=== PATIENT | female | born 1980 | race Caucasian/White ===

== ENCOUNTER 2017-01-30 04:59 | Emergency (ER) | payer SELFPAY ==
--- NOTE | 2017-01-30 06:34 | DIAGNOSTIC IMAGING REPORT ---
PROCEDURE: CT LOWER EXT W/O CONT-RIGHT INDICATION: TRAUMA/INJURY TECHNIQUE: Axial scans with coronal and sagittal re-formations. COMPARISON: Right foot x-ray 01/30/2017. FINDINGS: There is a comminuted fracture of the calcaneus with minor displacement. The main fracture line is oblique from superior posterior to inferior anterior with some distraction of the fragments. Normal subtalar and ankle joints. No additional fractures. There is soft tissue swelling which is more prominent laterally. IMPRESSION: 1. Comminuted right calcaneus fracture 2. Results discussed with Dr. Moon
--- NOTE | 2017-01-30 06:48 | DIAGNOSTIC IMAGING REPORT ---
PROCEDURE: XR FOOT 3 VIEWS - RIGHT INDICATION: TRAUMA/INJURY TECHNIQUE: Three views. COMPARISON: None. FINDINGS: Nondisplaced fracture of the calcaneus. No additional fractures. Normal joint spaces and soft tissues. IMPRESSION: 1. Nondisplaced calcaneal fracture.
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
--- NOTE | 2017-01-30 07:38 | ED ORDER SUMMARY ---
..... Patient: BATOOL MOORE OrderSheet [facility] VisitID: [id number] [place] [address] 36y, F Registration Date/Time: 01/30/2017 ORDER SHEET Weight: 68.0 kg (stated) Allergies: Imitrex GENERAL ORDERS: Foot 3V Right Urgent (05:12 01/30/2017 HSoule per protocol) (5:15 CBradburn R.N.) CT Lower Extremity Without Contrast - Right Urgent (05:36 01/30/2017 Stephen HI) (5:50 RFay) Splint (LE) (Right) (Short Leg Posterior) (Fiberglass) (06:55 01/30/2017 HSoule verbal order read back to Stephen HI) (7:11 MWinterer R.N.) Crutches (07:10 01/30/2017 Stephen HI) (7:11 MWinterer R.N.) MEDICATION ORDERS: Oxycodone-APAP PO 5/325 mg (NOW) (05:36 01/30/2017 Stephen HI) (Ack 5:50 HSoule) (5:58 HSoule) IV FLUIDS: ORDER SHEET NOTES: [Electronically signed by Maricarmen Hunt R.N. (09:23 01/30/2017)] [Electronically signed by Alan Moon MD (08:53 01/31/2017)] [Electronically locked/signed by Maricarmen Hunt R.N. (09:23 01/30/2017)]
--- NOTE | 2017-01-30 07:38 | ED ORDER SUMMARY ---
..... Patient: BATOOL MOORE OrderSheet [facility] VisitID: [id number] [place] [address] 36y, F Registration Date/Time: 01/30/2017 ORDER SHEET Weight: 68.0 kg (stated) Allergies: Imitrex GENERAL ORDERS: Foot 3V Right Urgent (05:12 01/30/2017 HSoule per protocol) (5:15 CBradburn R.N.) CT Lower Extremity Without Contrast - Right Urgent (05:36 01/30/2017 Stephen HI) (5:50 RFay) Splint (LE) (Right) (Short Leg Posterior) (Fiberglass) (06:55 01/30/2017 HSoule verbal order read back to Stephen HI) (7:11 MWinterer R.N.) Crutches (07:10 01/30/2017 Stephen [place]) (7:11 MWinterer R.N.) MEDICATION ORDERS: Oxycodone-APAP PO 5/325 mg (NOW) (05:36 01/30/2017 Stephen [place]) (Ack 5:50 HSoule) (5:58 HSoule) IV FLUIDS: ORDER SHEET NOTES: [Electronically signed by Maricarmen Hunt R.N. (09:23 01/30/2017)] [Electronically signed by Alan Moon MD (08:53 01/31/2017)] [Electronically locked/signed by Maricarmen Hunt R.N. (09:23 01/30/2017)]
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
--- NOTE | 2017-01-31 08:53 | ED MED RECONCILIATION SUMMARY ---
Patient: BATOOL MOORE Medication Reconciliation Report [facility] VisitID: [id number] [address] [place] [address] 36y, F Registration Date/Time: 01/30/2017 Weight: 68.0 kg Height/Length: 67 in. BMI: 23.5 ALLERGIES: Imitrex The patient's Home Medications are listed below: NONE. The source(s) of the original Home Medication information: Not obtained. The following Medications were given to the patient in the Emergency Department: Oxycodone-APAP [PO] PO 1 tab, administered: 01/30/2017 5:48:00 AM The following Medications were prescribed to the patient: Oxycodone/APAP 5 mg/325 mg: take 1-2 tablets orally every 6 hours as needed for pain. Dispense twenty-five (25). No refill. -- Alan Moon MD
--- NOTE | 2017-01-31 08:53 | ED MED RECONCILIATION SUMMARY ---
Patient: BATOOL MOORE Medication Reconciliation Report [facility] VisitID: [id number] [address] [place] [address] 36y, F Registration Date/Time: 01/30/2017 Weight: 68.0 kg Height/Length: 67 in. BMI: 23.5 ALLERGIES: Imitrex The patient's Home Medications are listed below: NONE. The source(s) of the original Home Medication information: Not obtained. The following Medications were given to the patient in the Emergency Department: Oxycodone-APAP [PO] PO 1 tab, administered: 01/30/2017 5:48:00 AM The following Medications were prescribed to the patient: Oxycodone/APAP 5 mg/325 mg: take 1-2 tablets orally every 6 hours as needed for pain. Dispense twenty-five (25). No refill. -- Alan Moon MD
--- NOTE | 2017-01-31 08:53 | ED MAR SUMMARY ---
..... Medication Administration Record [address] [place] [address] Patient: BATOOL MOORE Visit ID: [id number] 36y, F Weight: 68.0 kg Height/Length: 67 in BMI: 23.5 ALLERGIES: Imitrex Given 05:48 01/30/2017 Candice Rodríguez, Medication Administered: OXYCODONE-APAP [PO] (OXYCODONE-ACETAMINOPHEN), Dose: 1 tab 5/325 mg Tablets PO. Medication Ordered: Oxycodone-APAP PO 5/325 mg (NOW).
--- NOTE | 2017-01-31 08:53 | ED MAR SUMMARY ---
..... Medication Administration Record [address] [place] [address] Patient: BATOOL MOORE Visit ID: [id number] 36y, F Weight: 68.0 kg Height/Length: 67 in BMI: 23.5 ALLERGIES: Imitrex Given 05:48 01/30/2017 Candice Rodríguez, Medication Administered: OXYCODONE-APAP [PO] (OXYCODONE-ACETAMINOPHEN), Dose: 1 tab 5/325 mg Tablets PO. Medication Ordered: Oxycodone-APAP PO 5/325 mg (NOW).
--- NOTE | 2017-01-31 08:53 | ED DISCHARGE INSTRUCTIONS ---
Patient: BATOOL MOORE General Instructions [facility] VisitID: [id number] [place] [address] 36y, F Registration Date/Time: 01/30/2017 Closed nondisplaced transverse, comminuted fracture of the body of the right calcaneus. Fall from colliding. INSTRUCTIONS Apply ice for 15-20 minutes three times a day for one days. Use crutches until released. Wear fiberglass splint until released. Elevate affected areas above chest level today. No weight bearing. Warnings: SEDATIVE MEDICATION: You were given sedative medication during your visit. Do not drive or operate dangerous machinery. GENERAL WARNINGS: Return or contact your physician immediately if your condition worsens or changes unexpectedly, if not improving as expected, or if other problems arise. Prescription Medications: Oxycodone/APAP 5 mg/325 mg: take 1-2 tablets orally every 6 hours as needed for pain. Dispense twenty-five (25). No refill. Understanding of the discharge instructions verbalized by patient. Follow-up with: Rickey Tolentino DPM, Podiatry, , [address], [place], [address] Follow up in three days. Call for an appointment. ADDITIONAL INFORMATION Mechanical Fall You have had a fall today. It appears that the cause is mechanical. That means that you slipped, tripped or lost your balance. If your fall had been due to fainting or a seizure, further tests would be required. Home Care: Rest today and resume your normal activities when you are feeling back to normal. If you were injured during the fall, follow the advice from your doctor regarding care of your injury. You may use acetaminophen (Tylenol) or ibuprofen (Motrin, Advil) to control pain, unless another pain medicine was prescribed. [NOTE: If you have chronic liver or kidney disease or ever had a stomach ulcer or GI bleeding, talk with your doctor before using these medicines.] Fall Prevention: Was there anything that caused your fall that can be fixed, removed, or replaced? Make your home safe by keeping walkways clear of objects you may trip over. Use non-slip pads under rugs. Do not walk in poorly lit areas. Do not stand on chairs or wobbly ladders. Use caution when reaching overhead or looking upward. This position can cause a loss of balance. Be sure your shoes fit properly, have non-slip bottoms and are in good condition. Be cautious when going up and down curbs, and walking on uneven sidewalks. If your balance is poor, consider using a cane or walker. Stay as active as you can. Balance, flexibility, strength, and endurance all come from exercise. They all play a role in preventing falls. Follow Up with your doctor or as advised by our staff. Get Prompt Medical Attention if any of the following occur: Repeated mechanical falls, or unexplained falls Dizziness, fainting or seizure Severe headache Chest pain or shortness of breath Palpitations (very rapid or very slow or irregular heartbeat) Blood in vomit, stools (black or red color) Weakness of an arm or leg or one side of the face Difficulty with speech or vision Fracture:Foot You have a fracture (break) of one of the bones in your foot. This will cause pain, swelling and sometimes bruising. It will take about 4-6 weeks to heal. A foot fracture may be treated with a special shoe, splint, cast or boot. Home Care: You may be given a splint, cast, shoe or boot to prevent movement at the injury. Unless you were told otherwise, use crutches or a walker and do not bear weight on the injured foot until cleared by your doctor to do so. (Crutches and walkers can be rented at many pharmacies and surgical/orthopedic supply stores). Do not put weight on a splint; it will break. Keep your leg elevated to reduce pain and swelling. When sleeping, place a pillow under the injured leg. When sitting, support the injured leg so it is level with your waist. This is very important during the first 48 hours. Apply an ice pack (ice cubes in a plastic bag, wrapped in a towel) over the injured area for 20 minutes every 1-2 hours the first day. You can place the ice pack directly over the splint/cast. Unless told otherwise, you can open the boot or shoe to apply ice. Continue with ice packs 3-4 times a day for the next two days, then as needed for the relief of pain and swelling. Keep the splint/cast/boot/shoe dry. When bathing, protect it with a large plastic bag, rubber-banded at the top end. If a fiberglass splint/cast or boot gets wet, you can dry it with a hair-dryer. Unless told otherwise, you can remove a boot or shoe to bathe. You may use acetaminophen (Tylenol) or ibuprofen (Motrin, Advil) to control pain, unless another pain medicine was prescribed. [NOTE: If you have chronic liver or kidney disease or ever had a stomach ulcer or GI bleeding, talk with your doctor before using these medicines.] Follow Up with your doctor within one week, or as advised by our staff, to be sure the bone is healing properly. If you were given a splint, it may be changed to a cast or boot at your follow-up visit.[NOTE: A radiologist will review any X-rays that were taken. We will notify you of any new findings that may affect your care.] Get Prompt Medical Attention if any of the following occur: The plaster cast or splint becomes wet or soft The fiberglass cast or splint remains wet for more than 24 hours Increased tightness or pain under the cast or splint Toes become swollen, cold, blue, numb or tingly Crutch Walking Crutch Adjustment Make sure the crutches you use are adjusted to fit you. When you stand, there should be room to fit 2-3 fingers between the top of the crutch and your armpit. Your elbow should be slightly bent when holding the hand dukey rider. Crutch Walking: Place the crutches forward 12" in front of and 6" to the side of your feet. Lean your weight forward as you push down on the handgrips. Your weight should be on your hands and yourstrong leg, not your armpits . Let your body swing through, landing on the strong leg. Advance the crutches forward again. The crutch and the injured leg should move together. Going Up Steps: ("Up with the good") With both crutches on the same step as your feet, push down on the handgrips. Balancing with very light pressure on the weak leg, let your hands support your weight as you raise your strong leg onto the next higher step. Transfer all your weight to your strong leg (still bent) as you move the crutches up to the next step alongside the strong leg. With your weight evenly balanced on the two crutches and your strong leg, straighten your strong knee as you raise the weak leg up to the next step. Going Down Steps: ("Down with the bad") With both crutches on the same step as your feet, push down on the handgrips. With your weight evenly balanced on the two crutches and your strong leg, bend your strong knee as you lower the weak leg down to the next step. Let your strong leg support you (still bent) as you move the crutches down alongside the weak leg. Transfer your weight to your hands, balancing with very light pressure on the weak leg as you lower your strong leg alongside your weak leg. Splint Care, Fiberglass The following will help you care for your splint: It will take up totwo hours for your fiber glass splint to fully harden; therefore, do notapply any pressure on it during that time or else it may break. To prevent swelling under the splint, for thefirst 48 hours: If the splint is on yourarm, keep it in a sling or raised to shoulder level when sitting or standing; rest it on your chest or on a pillow at your side when lying down. If the splint is on yourfoot, keep it propped up above the level of your waist when sitting or lying. Avoid crutch walking as much as possible during this time. Keep the splint/cast dry at all times. Bathe with your splint/cast well out of the water, protected with a large plastic bag, rubber-banded at the top end. If a fiberglass cast or splint gets wet, you can dry it with a hair-dryer. Follow-up care Follow up with your doctor or this facility as advised. When to seek medical care Get prompt medical attention if any of the following occur: Bad odor from the splint or wound-fluid stains the splint The splint cracks or remains wet over 24 hours Increasing tightness or pressure under the splint Fingers or toes become swollen, cold, blue, numb or tingly Increased pain under the splint Oxycodone Hydrochloride, Acetaminophen Oral tablet What is this medicine? ACETAMINOPHEN; OXYCODONE (a set a PAUL dimas fen; ox i KOE done) is a pain reliever. It is used to treat mild to moderate pain. How should I use this medicine? Take this medicine by mouth with a full glass of water. Follow the directions on the prescription label. Take your medicine at regular intervals. Do not take your medicine more often than directed. Talk to your combine operator regarding the use of this medicine in children. Special care may be needed. Patients over 65 years old may have a stronger reaction and need a smaller dose. What side effects may I notice from receiving this medicine? Side effects that you should report to your doctor or health animal care technician as soon as possible: allergic reactions like skin rash, itching or hives, swelling of the face, lips, or tongue breathing difficulties, wheezing confusion light headedness or fainting spells severe stomach pain yellowing of the skin or the whites of the eyes Side effects that usually do not require medical attention (report to your doctor or health animal care technician if they continue or are bothersome): dizziness drowsiness nausea vomiting What may interact with this medicine? alcohol antihistamines barbiturates like amobarbital, butalbital, butabarbital, methohexital, pentobarbital, phenobarbital, thiopental, and secobarbital benztropine drugs for bladder problems like solifenacin, trospium, oxybutynin, tolterodine, hyoscyamine, and methscopolamine drugs for breathing problems like ipratropium and tiotropium drugs for certain stomach or intestine problems like propantheline, homatropine methylbromide, glycopyrrolate, atropine, belladonna, and dicyclomine general anesthetics like etomidate, ketamine, nitrous oxide, propofol, desflurane, enflurane, halothane, isoflurane, and sevoflurane medicines for depression, anxiety, or psychotic disturbances medicines for sleep muscle relaxants naltrexone narcotic medicines (opiates) for pain phenothiazines like perphenazine, thioridazine, chlorpromazine, mesoridazine, fluphenazine, prochlorperazine, promazine, and trifluoperazine scopolamine tramadol trihexyphenidyl What if I miss a dose? If you miss a dose, take it as soon as you can. If it is almost time for your next dose, take only that dose. Do not take double or extra doses. Where should I keep my medicine? Keep out of the reach of children. This medicine can be abused. Keep your medicine in a safe place to protect it from theft. Do not share this medicine with anyone. Selling or giving away this medicine is dangerous and against the law. Store at room temperature between 20 and 25 degrees C (68 and 77 degrees F). Keep container tightly closed. Protect from light. This medicine may cause accidental overdose and if it is taken by other adults, children, or pets. Flush any unused medicine down the toilet to reduce the chance of harm. Do not use the medicine after the expiration date. What should I tell my health care provider before I take this medicine? They need to know if you have any of these conditions: brain tumor Crohn's disease, inflammatory bowel disease, or ulcerative colitis drink more than 3 alcohol containing drinks per day drug abuse or addiction head injury heart or circulation problems kidney disease or problems going to the bathroom liver disease lung disease, asthma, or breathing problems an unusual or allergic reaction to acetaminophen, oxycodone, other opioid analgesics, other medicines, foods, dyes, or preservatives or trying to get breast-feeding What should I watch for while using this medicine? Tell your doctor or health animal care technician if your pain does not go away, if it gets worse, or if you have new or a different type of pain. You may develop tolerance to the medicine. Tolerance means that you will need a higher dose of the medication for pain relief. Tolerance is normal and is expected if you take this medicine for a long time. Do not suddenly stop taking your medicine because you may develop a severe reaction. Your body becomes used to the medicine. This does NOT mean you are addicted. Addiction is a behavior related to getting and using a drug for a non-medical reason. If you have pain, you have a medical reason to take pain medicine. Your doctor will tell you how much medicine to take. If your doctor wants you to stop the medicine, the dose will be slowly lowered over time to avoid any side effects. You may get drowsy or dizzy. Do not drive, use machinery, or do anything that needs mental alertness until you know how this medicine affects you. Do not stand or sit up quickly, especially if you are an older patient. This reduces the risk of dizzy or fainting spells. Alcohol may interfere with the effect of this medicine. Avoid alcoholic drinks. There are different types of narcotic medicines (opiates) for pain. If you take more than one type at the same time, you may have more side effects. Give your health care provider a list of all medicines you use. Your doctor will tell you how much medicine to take. Do not take more medicine than directed. Call emergency for help if you have problems breathing. The medicine will cause constipation. Try to have a bowel movement at least every 2 to 3 days. If you do not have a bowel movement for 3 days, call your doctor or health animal care technician. Do not take Tylenol (acetaminophen) or medicines that have acetaminophen with this medicine. Too much acetaminophen can be very dangerous. Many nonprescription medicines contain acetaminophen. Always read the labels carefully to avoid taking more acetaminophen. You have been given the following additional information: Fall, Mechanical Fracture, Foot Crutch Walking Splint Care, Fiberglass Oxycodone Hydrochloride, Acetaminophen Oral tablet No weight bearing. (Electronically signed by Alan Moon MD 01/31/2017 8:53)
== END 2017-01-30 07:45 | disposition home or self-care (01) ==
LOC: ED SRH 04:59
DX: S92.014A Nondisplaced fracture of body of right calcaneus, initial encounter for closed fracture (principal); V17.0XXA Pedal cycle driver injured in collision with fixed or stationary object in nontraffic accident, initial encounter; Y93.55 Activity, bike riding; Y92.410 Unspecified street and highway as the place of occurrence of the external cause; F17.210 Nicotine dependence, cigarettes, uncomplicated